=== PATIENT | male | born 1950 | race Caucasian/White ===

== ENCOUNTER 2016-10-12 08:58 | Emergency (ER) | payer OTHER ==
[~2016-10-12] VITALS: Ht 182.9 cm; Wt 93.0 kg
--- NOTE | 2016-10-12 09:29 | ED GENERAL ADULT ---
History of Present Illness General Chief Complaint: Eye Problems Stated Complaint: L EYE BLOOD SHOT, NO KNOWN INJURY Source: patient Exam Limitations: no limitations Vital Signs & Intake/Output Vital Signs & Intake/Output Vital Signs Date Time Temp Pulse Resp B/P Pulse O2 O2 Flow FiO2 Ox Delivery Rate 10/12 0913 96.0 62 20 131/73 97 Room Air Room Air Allergies Coded Allergies: No Known Allergies (10/12/16) Triage Note: PT TO ED WITH C/O "LEFT INNER EYE BLOODSHOT", DENIES INJURY OR FOREIGN BODY TO THE LEFT EYE, DENIES PAIN, DENIES VISUAL PROBLEMS. Triage Nurses Notes Reviewed? yes Onset: Abrupt Duration: hour(s): Timing: recent history HPI: 10/12/16 9:36 am This is a 66-year-old male presents to the emergency department for left eye redness. The patient states he woke up this morning and had redness to his left eye he denies headache vomiting fever or any problems with his vision. The onset of the symptoms were abrupt, the duration was just this morning, the severity significant as his symptoms required him to come to the emergency department for care. He has no associated hematuria, blood in the stools, or ecchymotic skin lesions. He is not on any blood thinners. Past History Travel History Traveled to [place] past 21 day No Medical History Any Pertinent Medical History? see below for history Neurological: NONE EENT: NONE Cardiovascular: hypertension, hyperlipidemia Respiratory: COPD Gastrointestinal: NONE Hepatic: NONE Renal: NONE Musculoskeletal: DISC SURGERY Psychiatric: NONE Endocrine: diabetes Blood Disorders: NONE Cancer(s): NONE MOBILE NURSE/Reproductive: NONE Surgical History Surgical History: non-contributory Psychosocial History Tobacco Use: Quit >30 days ago ETOH Use: denies use Illicit Drug Use: denies illicit drug use Family History Hx Contributory? No Review of Systems Review of Systems Constitutional: Denies: fever. EENTM: Denies: visual changes, eye pain. Respiratory: Reports: cough. Denies: short of breath. Cardiovascular: Denies: chest pain. GI: Reports: no symptoms. Genitourinary: Reports: no symptoms. Musculoskeletal: Reports: no symptoms. Skin: Reports: no symptoms. Neurological/Psychological: Reports: no symptoms. Hematologic/Endocrine: Reports: no symptoms. Immunologic/Allergic: Reports: no symptoms. Physical Exam Physical Exam General Appearance: well developed/nourished, alert, awake, anxious, mild distress Head: left sub conj hemmorhage Eyes: Bilateral: PERRL, EOMI. Ears, Nose, Throat: hearing grossly normal Neck: supple Respiratory: normal breath sounds, chest non-tender, no respiratory distress Cardiovascular: regular rate/rhythm Back: normal range of motion Extremities: normal inspection, normal range of motion Neurologic/Psych: no motor/sensory deficits, awake, alert, oriented x 3, normal gait Skin: intact, normal color, warm/dry Core Measures ACS in differential dx? 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 Initial ED EKG: none Departure Departure Disposition: HOME OR SELF CARE Condition: Stable Clinical Impression Primary Impression: Subconjunctival hemorrhage of left eye Referrals: KATHY LA,JUANA Scott (PCP/Family) Departure Forms: Customer Survey General Discharge Information Critical Care Note Critical Care Note Critical Care Time: non-applicable
[2016-10-12 09:48] VITALS: BP 120/70
== END 2016-10-12 09:49 ==
LOC: ERH 08:58
DX: H11.32 Conjunctival hemorrhage, left eye (principal)